=== PATIENT | female | born 1980 | race Caucasian/White ===

== ENCOUNTER 2016-07-12 19:47 | Emergency (ER) | payer OTHER ==
[2016-07-12 21:21] VITALS: BP 128/62
[2016-07-12] MEDS ORDERED: cefTRIAXone VIAL(*) 250 MG VIAL IM ONE (23:01)
[2016-07-12] MEDS ORDERED: Amoxicillin/Clavulanate TAB* 875 MG PO ONE (23:01)
[2016-07-12] MEDS ORDERED: Sulfamethox/Trimethoprim DS 800/160* TAB PO ONE (23:02)
[2016-07-12] MEDS ORDERED: cefTRIAXone VIAL(*) 1,000 MG VIAL ONE (23:11)
[2016-07-12] MEDS ORDERED: Lidocaine 2% PF * 5 ML VIAL ONE (23:13)
[2016-07-12] MEDS ORDERED: Lidocaine 1% MPF* 2 ML VIAL ONE (23:14)
--- NOTE | 2016-07-22 15:01 | UC ---
Jose Valdes SooYoung, scribed for Brionna Jorge MD on 07/12/16 at 2248 . Skin Complaint HPI - HPI Summary HPI Summary: A 36 y/o F presents to [facility] [place] with c/o infection at R thumbnail onset a few days ago. Additionally, pt has an abscess at her L interior elbow onset today, and worsening over hours. She also has swelling along her R-side of chin for past few days. Denies any other skin breaks, abscesses or areas of swelling. Right hand dominant. IVDA, smoker. Past PMHx of MRSA. Pt is UTD on tetanus. - History of Current Complaint Chief Complaint: UCSkin Time Seen by Provider: 07/12/16 22:35 Stated Complaint: SKIN COMPLAINT Hx Obtained From: Patient Hx Last Menstrual Period: 1 MONTH AGO Onset/Duration: Lasting Hours, Lasting Days, Still Present Current Severity: Moderate Pain Intensity: 5 Pain Scale Used: 0-10 Numeric Location: Face - R chin, Hand (Right), Other - L interior elbow Character: Swelling, Redness, Raised, Painful - Allergy/Home Medications Allergies/Adverse Reactions: Allergies Allergy/AdvReac Type Severity Reaction Status Date / Time Gabapentin Allergy Severe SKIN Verified 07/13/16 03:12 REACTION Home Medications: Home Medications Aspirin TAB* 650 mg PO PRN 07/12/16 [History] Ibuprofen TAB* [Advil TAB*] 600 mg PO PRN 07/12/16 [History] Review of Systems Constitutional: Negative Skin: Other - pos: swelling, pain, erythema at R-chin, L elbow, R thumbnail Eyes: Negative ENT: Negative Respiratory: Negative Cardiovascular: Negative Gastrointestinal: Negative Genitourinary: Negative Motor: Other - pain as per hpi Neurovascular: Negative Musculoskeletal: Other: - pain, redness, swelling as per hpi (chin, left distal ant arm just prox to elbow), R hand Neurological: Negative Psychological: Anxious - appropriate with condition All Other Systems Reviewed And Are Negative: Yes PMH/Surg Hx/FS Hx/Imm Hx Previously Healthy: No Respiratory History Of: Reports: Asthma Other History Of: Hepatitis C - Surgical History Surgical History: None - Social History Occupation: Unemployed Lives: Alone Alcohol Use: None Substance Use Type: Marijuana, Other Substance Use Comment - Amount & Last Used: METH Smoking Status (MU): Current Every Day Smoker Type: Cigarettes Amount Used/How Often: 1 PPD Physical Exam Triage Information Reviewed: Yes Appearance: Pain Distress - uncomfortable with examination, Thin Vital Signs: Initial Vital Signs Temp 97.1 F 07/12/16 21:16 Pulse 84 07/12/16 21:16 Resp 16 07/12/16 21:16 BP 128/62 07/12/16 21:16 Pulse Ox 100 07/12/16 21:16 Vital Signs Reviewed: Yes Eye Exam: Normal - pupils approx 2-3m, equal ENT Exam: Normal Dental Exam: Other - poor dentition R chin with + redness, swelling. Tongue NOT elevated. No trismus. Neck supple. Neck exam: Normal Respiratory Exam: Normal Cardiovascular Exam: Normal Abdominal Exam: Normal Musculoskeletal Exam: Other - L distal arm just prox to elbow with approx 5cm area of redness, swelling. C/w abscess. Distal pulses 2+, good cap refill. Able to straighten elbow, but uncomfortable Distal strength good. R index finger wiht paronychia, with dusky margins. + white purulence noted. Moves finger ok. Tender with pressure examination. Neurological Exam: Normal - nonfocal Psychological Exam: Normal - appropriate. speech clear. Skin Exam: Other - see above - Additional Comments Appearance: Well-Nourished Eye Exam: Normal ENT Exam: Normal Neck exam: Normal, no adenopathy appreciated Respiratory Exam: Normal, no dyspnea, no tachypnea, normal respiratory rate Only if she checked: Chest non-tender, Lungs clear, Normal breath sounds, No respiratory distress, No accessory muscle use Cardiovascular Exam: Normal Cardiovascular: RRR, No Murmur, Pulses Normal - sitting up. heart rate correlates w left radial pulse (if relevant), Brisk Capillary Refill Abdominal Exam: Normal Abdomen Description: Nontender, No organomegaly, Soft Bowel Sounds: Present Musculoskeletal Exam: Normal Musculoskeletal: Strength Intact Neurological Exam: Normal: nonfocal, grossly intact Psychological Exam: Normal: conversing easily and appropriately Skin Exam: R THUMB NECROSIOS OF AN-PARONYCHIA Course/Dx - Course Course Of Treatment: I spoke with Dr. Goel. Initlal plan to I/d paronychia here, administer IM abx. However, general condition deteriorated (+ pain). She will go the ED (for futher eval / tx / IV abx). I called the ED to advise. PO abx administered here at [facility]. AMA signed for EMS. Tet utd per pt (last year). Questions answered as posed. Conversing easily and appropriately at departure, airway intact. No new problems reported. Cistern Room Operator driving pt to ED. - Diagnoses Provider Diagnoses: Multiple abscesses and cellulitis (chin, left arm). R index finger paronychia with early necrosis - Physician Notification/Consults Discussed Patient Care With: 0: Spoke to benita Zheng. 2329: Spoke to YONAS Gallardo Instructed by Provider To: MD Will See In ED Procedures - Incision and Drainage Site: R thumbnail Discharge - Discharge Plan Condition: Stable Disposition: AGAINST MEDICAL ADVICE Prescriptions: Sulfamethox/Trimethoprim DS* [Bactrim DS 800/160 TAB*] 1 tab PO BID #20 tab The documentation as recorded by the Jose gutierrez SooYoung accurately reflects the service I personally performed and the decisions made by me, Brionna Jorge MD.
== END 2016-07-12 23:40 | disposition left against medical advice (07) ==
LOC: UCEAST 19:47
DX: L02.01 Cutaneous abscess of face (principal); L02.414 Cutaneous abscess of left upper limb; L03.211 Cellulitis of face; L03.114 Cellulitis of left upper limb; L03.011 Cellulitis of right finger; I96 Gangrene, not elsewhere classified; Z86.14 Personal history of Methicillin resistant Staphylococcus aureus infection; F12.90 Cannabis use, unspecified, uncomplicated; F17.210 Nicotine dependence, cigarettes, uncomplicated
CPT/HCPCS: 99212; 99213; A9270-GY; G0463; J0696

== ENCOUNTER 2016-07-13 00:39 | Emergency (ER) | payer OTHER ==
[2016-07-13 00:55] VITALS: BP 114/76
[2016-07-13] MEDS ORDERED: oxyCODONE/Acetamin 5/325 MG* TAB PO ONE ×2 (01:57→02:30)
--- NOTE | 2016-07-13 02:58 | ED ---
Skin Complaint - HPI Summary HPI Summary: 36 F presents with multiple abscess on body. She states that she does not know when they started but today the got worst. One is located on right of her chin , on right thumb, and left forearm. She does inject heroin but she states she does not use any of these locations. She has PMH of MRSA. She denies any fever. She was seen at and transferred here. She is right handed. - History of Current Complaint Chief Complaint: EDRashSkinAbscess Time Seen by Provider: 07/13/16 01:13 Stated Complaint: LEFT ARM AND CHIN ABCESS/R THUMB PAIN Hx Last Menstrual Period: 1 MONTH AGO Pain Intensity: 8 - Allergy/Home Medications Allergies/Adverse Reactions: Allergies Allergy/AdvReac Type Severity Reaction Status Date / Time Gabapentin Allergy Severe SKIN Verified 07/13/16 03:12 REACTION PMH/Surg Hx/FS Hx/Imm Hx Cardiovascular History: Denies: Hx Hypertension Respiratory History: Reports: Hx Asthma - Immunization History Date of Tetanus Vaccine: utd Date of Influenza Vaccine: unk Infectious Disease History: Yes Infectious Disease History: Reports: Hx Hepatitis - HEP C Denies: Traveled Outside the [place] in Last 30 Days - Family History Known Family History: Negative: Cardiac Disease - Social History Alcohol Use: None Substance Use Type: Reports: Heroin, Marijuana, Other Substance Use Comment - Amount & Last Used: METH Smoking Status (MU): Current Every Day Smoker Type: Cigarettes Amount Used/How Often: 1 PPD Review of Systems Negative: Fever Negative: Chest Pain Negative: Shortness Of Breath Positive: Other - abscess of right thumb, left forearm, chin All Other Systems Reviewed And Are Negative: Yes Physical Exam Triage Information Reviewed: Yes Vital Signs On Initial Exam: Initial Vitals Temp Pulse Resp BP Pulse Ox 97.9 F 80 14 114/76 97 07/13/16 00:47 07/13/16 00:47 07/13/16 00:47 07/13/16 00:47 07/13/16 00:47 Vital Signs Reviewed: Yes Appearance: Positive: Pain Distress Skin: Positive: Other - parochnyia noted of right thumb, abscess of left forearm , and abscess vs cellulitis of chin, Head/Face: Positive: Normal Head/Face Inspection Eyes: Positive: Normal, Conjunctiva Clear Respiratory/Lung Sounds: Positive: Clear to Auscultation, Breath Sounds Present Cardiovascular: Positive: Normal, RRR Musculoskeletal: Positive: Strength/ROM Intact - of right thumb, Limited @ - left forearm due to pain - Vianney Coma Scale Coma Scale Total: 15 Procedures - Incision and Drainage Site: right thumb near nail and left forearm Anesthesia: Topical - left forearm, Digital - right thumb Instrument(s): Scalpel Diagnostics - Vital Signs Vital Signs Temp Pulse Resp BP Pulse Ox 07/13/16 00:47 97.9 F 80 14 114/76 97 - Laboratory Lab Statement: Any lab studies that have been ordered have been reviewed, and results considered in the medical decision making process. Course/Dx - Course Course Of Treatment: 36 F presents with multiple potenital abscess. has PMH of MRSA. parochynia noted on right thumg, dr renee performed u/s and did not see drainable area in chin so likely cellulitis, saw drainable area of left forearm which I was not able to drain with I&D, was able to drain parochynia, will place on bactrim and keflex, first dose already given at urgent care, will have patient follow up friday at or ED for wound check as was unable to drain abscess of left forearm, encouraged to do warm compresses, warned if redness or swelling increase to return to ED immediately, patient understands and agrees with plan - Differential Diagnoses - Skin Complaint Differential Diagnoses: Abscess, Cellulitis, Contact Dermatitis - Diagnoses Provider Diagnoses: Paronychia of right thumb, Abscess of left forearm, Cellulitis of chin Discharge - Discharge Plan Condition: Stable Disposition: HOME Prescriptions: Cephalexin CAP* [Keflex CAP*] 500 mg PO BID #19 cap Sulfamethox/Trimethoprim DS* [Bactrim DS 800/160 TAB*] 1 tab PO BID #19 tab Patient Education Materials: Abscess (ED) Referrals: [facility] [place] [facility] [Outside] Additional Instructions: Take Bactrim and Keflex each twice a day for 10 days Do warm soaks of areas Take Tylenol or ibuprofen for pain every 6 hours Follow up Friday for wound check at urgent care or ED Establish care with primary care physician Return to ED if redness or swelling spreads, fever, or any new or worsening symptoms
[2016-07-13] MEDS ORDERED: Sulfamethox/Trimethoprim DS 800/160* TAB PO ONE (02:59)
[2016-07-13] MEDS ORDERED: Cephalexin CAP* 500 MG PO ONE (03:00)
== END 2016-07-13 03:20 | disposition home or self-care (01) ==
LOC: ED 00:39
DX: L03.011 Cellulitis of right finger (principal); L02.414 Cutaneous abscess of left upper limb; L03.211 Cellulitis of face; F17.210 Nicotine dependence, cigarettes, uncomplicated; F11.10 Opioid abuse, uncomplicated; F15.10 Other stimulant abuse, uncomplicated; B19.20 Unspecified viral hepatitis C without hepatic coma; F12.10 Cannabis abuse, uncomplicated
CPT/HCPCS: 10060; 87070; 87077; 87186; 87205; 99282; A9270-GY

== ENCOUNTER 2016-07-16 13:48 | Emergency (ER) | payer OTHER ==
[2016-07-16 14:05] VITALS: BP 99/60
--- NOTE | 2016-07-16 14:52 | UC ---
HPI Wound/Suture Re-check - HPI Summary HPI Summary: PT HAD RIGHT THUMB ABSCESS I&D AND LEFT ANTECUBITAL FOSSA ABSCESS ATTEMPTED I&D ON 07/13/16 IN THE ER. 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 LEFT ARM REDNESS IS SMALLER BUT PERSISTENT AND SWELLING IS BETTER. NO PUS BUT STILL HAS SOME SEROSANGUINOUS OOZING. PT IS NOT RELIABLY SOAKING THE WOUNDS. IS AN IV DRUG USER AND HAS NO INTEREST IN CESSATION AT THIS TIME. NO FEVER. - History Of Current Complaint Chief Complaint: UCWounds Stated Complaint: RECHECK WOUND Time Seen by Provider: 07/16/16 14:19 Hx Obtained From: Patient Onset/Duration: Gradual Onset, Still Present Severity: Moderate Pain Intensity: 3 Pain Scale Used: 0-10 Numeric - Allergies/Home Medications Allergies/Adverse Reactions: Allergies Allergy/AdvReac Type Severity Reaction Status Date / Time Gabapentin Allergy Severe SKIN Verified 07/13/16 03:12 REACTION PMH/Surg Hx/FS Hx/Imm Hx Cardiovascular History Of: Denies: Hypertension Respiratory History Of: Reports: Asthma - Surgical History Surgical History: None - Family History Known Family History: Negative: Cardiac Disease - Social History Alcohol Use: None Substance Use Type: Heroin, Marijuana, Other Substance Use Comment - Amount & Last Used: METH Smoking Status (MU): Current Every Day Smoker Type: Cigarettes Amount Used/How Often: 1 PPD Review of Systems Constitutional: Negative Skin: Other - REDNESS, INDURATION AROUND I&D SITE LEFT ANTECUBITAL FOSSA Respiratory: Negative Cardiovascular: Negative Gastrointestinal: Negative All Other Systems Reviewed And Are Negative: Yes Physical Exam Triage Information Reviewed: Yes Appearance: Well-Appearing, No Pain Distress, Well-Nourished Vital Signs: Initial Vital Signs Temp 98.2 F 07/16/16 14:01 Pulse 86 07/16/16 14:01 Resp 16 07/16/16 14:01 BP 99/60 07/16/16 14:01 Pulse Ox 100 07/16/16 14:01 Vital Signs Reviewed: Yes Eyes: Positive: Conjunctiva Clear ENT: Positive: Hearing grossly normal Neck: Positive: Supple Respiratory: Positive: No respiratory distress, No accessory muscle use Cardiovascular: Positive: Pulses Normal Abdomen Description: Positive: Soft Musculoskeletal: Positive: ROM Intact Neurological: Positive: Alert Psychological: Positive: Age Appropriate Behavior Skin: Positive: Other - 3CM X 4.5CM AREA OF ERYTHEMA AND INDURATION AROUND I&D SITE LEFT ANTECUBITAL FOSSA. 2CM LINEAR INCISION WITH SEROSANGUIONOUS OOZE. TTP. RIGHT THUMB WITHOUT REDNESS OR DRAINAGE. TENDER. Course/Dx - Course Course Of Treatment: INCREASE DOSE OF BACTRIM. WARM SOAKS MUST BE DONE AT LEAST 4 TIMES DAILY. HIBICLENS WASH. BACTROBAN INTRANASALLY. FOLLOW-UP IN 2 DAYS IF NOT IMPROVING. ADVISED SUBSTANCE ABUSE CESSATION BUT PT IS NOT INTERESTED. OFFERED TO GIVE CONTACTS FOR RESOURCES FOR SUBSTANCE ABUSE - PT STATES SHE ALREADY HAS. - Differential Dx - Laceration/Wound Provider Diagnoses: ABSCESS/CELLULITIS LEFT ARM Discharge - Discharge Plan Condition: Stable Disposition: HOME Prescriptions: Mupirocin Calcium [Bactroban Nasal] 2 % NA BID #1 tube Sulfamethox/Trimethoprim DS* [Bactrim DS 800/160 TAB*] 1 tab PO BID #14 tab Patient Education Materials: Abscess (ED) Additional Instructions: CALL THE NUMBER BELOW FOR ASSISTANCE IN ESTABLISHING WITH A PCP An additional resource available to assist in finding the appropriate physician for your health care needs is the [facility] ([facility]). You may contact them by calling [phone].USE WILL INCREASE YOUR BACTRIM DOSE TO 2 TABS TWICE DAILY FOR THE REMAINING 7 DAY COURSE. HIBICLENS WASH DAILY FOR 3 DAYS THEN CONSIDER WEEKLY OR EVERY OTHER WEEK USE WARM/HOT COMPRESSES/SOAKS AT LEAST 4 TIMES DAILY BACTROBAN NASALLY 2 TIMES DAILY X 5 DAYS CHANGE BANDAGE DAILY AND NEEDED IF BECOMES SOILED OR WET GO TO THE ER OR RETURN HERE FOR WOUND RECHECK IN 2 DAYS IF NOT IMPROVING. Apply HIBICLENS directly on your skin or on a wet washcloth and wash gently. Avoid mucous membranes (eyes, ears, mough, genitals). If showering: Move away from the shower stream when applying HIBICLENS to avoid rinsing off too soon. Rinse thoroughly with warm water. Do not use regular soap after applying and rinsing HIBICLENS. Dry your skin with a towel. Put on a freshly laundered gown or clothes after bathing.
== END 2016-07-16 15:34 | disposition home or self-care (01) ==
LOC: UCEAST 13:48
DX: L02.414 Cutaneous abscess of left upper limb (principal); F11.90 Opioid use, unspecified, uncomplicated; F12.90 Cannabis use, unspecified, uncomplicated; F17.210 Nicotine dependence, cigarettes, uncomplicated
CPT/HCPCS: 99212; G0463

== ENCOUNTER 2017-02-09 12:37 | Emergency (ER) | payer SELFPAY ==
[2017-02-09 12:58] VITALS: BP 100/54
--- NOTE | 2017-02-09 13:07 | UC ---
Skin Complaint HPI - HPI Summary HPI Summary: 37 y/o female PMHX of Hep C, IVDA presents to the urgent care c/o a painful red rash in her chin for the past 3 days. Pt states she has HX of MRSA in her chin before. She took 1 dose of Bactrim from a friend yesterday and has been soaking her skin with warm compresses. Pain is 7/10 at touch, and 4/10 at rest, Pt denies fever, SOB, chest pain, abdominal pain, N/V/D, urinary symptoms. - History of Current Complaint Chief Complaint: UCSkin Time Seen by Provider: 02/09/17 13:04 Stated Complaint: MRSA INFECTION IN CHIN Hx Obtained From: Patient Hx Last Menstrual Period: 06-06-16 ?: No Onset/Duration: Gradual Onset, Lasting Days - 3 days, Still Present Skin Exposure Onset/Duration: Days Ago - 3 days Timing: Constant Onset Severity: Mild Current Severity: Moderate Pain Intensity: 7 Pain Scale Used: 0-10 Numeric Location: Discrete - at the chin Character: Swelling, Pain, Redness, Raised Aggravating: Touch Alleviating: Nothing Associated Signs & Symptoms: Positive: Tenderness. Negative: Nausea, Vomiting, Numbness, Fever, Chills, Throat Tightening Related History: Other: - HX of MRSA Similar Episode/Dx as: abscess HX of MRSA - Allergy/Home Medications Allergies/Adverse Reactions: Allergies Allergy/AdvReac Type Severity Reaction Status Date / Time Gabapentin Allergy Severe SKIN Verified 07/13/16 03:12 REACTION Home Medications: Home Medications Fentanyl Patch IV 02/09/17 [History] Review of Systems Constitutional: Negative Skin: Rash - at the chin swollen and red Eyes: Negative ENT: Negative Respiratory: Negative Cardiovascular: Negative Gastrointestinal: Negative Genitourinary: Negative Motor: Negative Neurovascular: Negative Musculoskeletal: Negative Neurological: Negative Psychological: Negative Is Patient Immunocompromised?: No All Other Systems Reviewed And Are Negative: Yes PMH/Surg Hx/FS Hx/Imm Hx Previously Healthy: Yes Other Endocrine History: Hep C Respiratory History: Asthma - Surgical History Surgical History: None - Family History Known Family History: Positive: Cardiac Disease, Hypertension, Diabetes - Social History Occupation: Unemployed Lives: With Family Alcohol Use: None Substance Use Type: Marijuana, Other Substance Use Comment - Amount & Last Used: opiates, IV fentanyl from a patch Smoking Status (MU): Current Every Day Smoker Type: Cigarettes Amount Used/How Often: 1 PPD Have You Smoked in the Last Year: Yes Household Exposure Type: Cigarettes Physical Exam Triage Information Reviewed: Yes Appearance: Well-Appearing, No Pain Distress, Well-Nourished Vital Signs: Initial Vital Signs Temp 98.4 F 02/09/17 12:51 Pulse 84 02/09/17 12:51 Resp 16 02/09/17 12:51 BP 100/54 02/09/17 12:51 Pulse Ox 100 02/09/17 12:51 Vital Signs Reviewed: Yes Eye Exam: Normal Eyes: Positive: Conjunctiva Clear - PERRLA, EOMI ENT Exam: Normal ENT: Positive: Normal ENT inspection, Hearing grossly normal, Pharynx normal, TMs normal Dental: Positive: Gross Decay/Caries @ - Poor dental hygiene Neck exam: Normal Neck: Positive: Supple, Enlarged Nodes @ - B/L anterior cervical lymphadenoapathy tedner to palpation Respiratory Exam: Normal Respiratory: Positive: Chest non-tender, Lungs clear, Normal breath sounds Cardiovascular Exam: Normal Cardiovascular: Positive: RRR, No Murmur, Pulses Normal, Brisk Capillary Refill Abdominal Exam: Normal Abdomen Description: Positive: Nontender, No Organomegaly, Soft. Negative: CVA Tenderness (R), CVA Tenderness (L) Bowel Sounds: Positive: Present Musculoskeletal Exam: Normal Musculoskeletal: Positive: Strength Intact, ROM Intact, No Edema Neurological Exam: Normal Psychological Exam: Normal Skin: Positive: rashes - Chin with erythematous nonpurulent indurated abscess, tender to palaption, mild yellowish crusting over. swollen and warm to touch, About [id number] in size. Course/Dx - Course Course Of Treatment: 37 y/o female PMHX of Hep C, IVDA presents to the urgent care c/o a painful red rash in her chin for the past 3 days. Pt states she has HX of MRSA in her chin before. She took 1 dose of Bactrim from a friend yesterday and has been soaking her skin with warm compresses. Pain is 7/10 at touch, and 4/10 at rest, Pt denies fever, SOB, chest pain, abdominal pain, N/V/D , urinary symptoms.HX obtained. Pt with an indurated nonpurulent abscess in her chin. Pt with HX of MRSA. Wound culture taken from superficial skin and sent to lab r/o MRSA. Pt given Rocefin IM inj by Nurse. DR Ramos counsulted and agreed on Pt's plan and care. Pt tolerated well IM inj and observed for 20min. Pt RX Amoxicillin PO and Bactrim PO and Bactroban oint. since PT with previous episode of MRSA in the same area. Pt Rx Ibuprofen PO after meals for pain. Pt advised to apply warm compresses to induce drainage and return to the clinic or PCP in 2 days for further evaluation and possible drainage. Also advised If redness and swelling doubles in size and fever develops despite antibiotics please go to the ER immediately. Pt understood and agreed with D/C instructions.Left the clinic ambulating and A&OX3 - Differential Diagnoses - Skin Complaint Differential Diagnoses: Abscess, Allergic Reaction, Cellulitis, Impetigo, MRSA, Tick Born Illness, Urticaria - Diagnoses Provider Diagnoses: 1- Abscess of chin w/ Hx of MRSA - Physician Notification/Consults Discussed Patient Care With: Angeline Ramos - DR Ramos agreed with PT plan and care Discharge - Discharge Plan Condition: Stable Disposition: HOME Prescriptions: Amoxicillin PO (*) [Amoxicillin 500 MG CAP*] 500 mg PO TID #30 cap Ibuprofen TAB* [Motrin TAB* 800 MG] 800 mg PO Q6H #30 tab Mupirocin 2% OINT* [Bactroban 2 % Oint*] 1 applic TOPICAL TID #1 tube Sulfamethox/Trimethoprim DS* [Bactrim DS 800/160 TAB*] 1 tab PO BID #20 tab Patient Education Materials: MRSA (Methicillin-Resistant Staphylococcus Aureus ) (ED), Abscess (ED) Referrals: [facility] [Outside] No Primary Care Phys,NOPCP [Primary Care Provider] - Additional Instructions: 1-Please take full course of Antibiotics.Apply warm compresses to induce drainage 2- If redness and swelling doubles in size and fever develops despite antibiotics please go to the ER immediately. 3-Cultures were sent to the lab if any abnormality you will receive a call from us for further management 4-Please F/u with your PCP or return to the urgent care in 2 days for wound check and further evaluation and treatment.
[2017-02-09] MEDS ORDERED: cefTRIAXone VIAL(*) 1,000 MG VIAL IM ONE (13:42)
[2017-02-09] MEDS ORDERED: Lidocaine 1% MPF* 2 ML VIAL INJ ONE ×2 (13:50→13:52)
--- NOTE | 2017-02-10 13:00 | UC ---
Progress - Progress Note Progress Note: notify pt see may stop amoxicillin
== END 2017-02-09 14:20 | disposition home or self-care (01) ==
LOC: UCEAST 12:37
DX: L02.01 Cutaneous abscess of face (principal); B95.62 Methicillin resistant Staphylococcus aureus infection as the cause of diseases classified elsewhere; J45.909 Unspecified asthma, uncomplicated; F11.90 Opioid use, unspecified, uncomplicated; F12.90 Cannabis use, unspecified, uncomplicated; F17.210 Nicotine dependence, cigarettes, uncomplicated
CPT/HCPCS: 87070; 87077; 87186; 87205; 87640; 87641; 96372; 99212; G0463; J0696

== ENCOUNTER 2017-04-16 04:11 | Inpatient (IN) | payer OTHER ==
[2017-04-16] MEDS ORDERED: NS 0.9% 1000 ML* 1,000 ML IV ONE (04:31)
[2017-04-16 04:55] LABS: Urine Bacteria Absent (Absent); Urine Bilirubin Negative (Negative); Urine Glucose Negative (Negative); Urine Nitrite Negative (Negative)
[2017-04-16 07:27] LABS: Hematocrit 36 % (35-47); Hemoglobin 12.2 g/dl (12.0-16.0); Mean Corpuscular HGB Conc 34 g/dl (31-36); Mean Corpuscular Hemoglobin 28 pg (27-31); Mean Corpuscular Volume 83 fL (80-97); Mean Platelet Volume 9 um3 (7.4-10.4); Red Blood Count 4.35 10^6/ul (4.0-5.4); Red Cell Distribution Width 14 % (10.5-15); White Blood Count 12.7 10^3/ul (3.5-10.8)
[2017-04-16] MEDS ORDERED: Ibuprofen TAB* 600 MG PO ONE (07:38)
[2017-04-16 07:42] LABS: ALT 21 U/L (7-52); AST 27 U/L (13-39); Albumin 3.8 g/dL (3.2-5.2); Alkaline Phosphatase 67 U/L (34-104); Anion Gap 5 mmol/L (2-11); BUN/Creatinine Ratio 31.8 (8-20); Blood Urea Nitrogen 21 mg/dL (6-24); C Reactive Protein 16.67 mg/L (< 5.00); CO2 Carbon Dioxide 23 mmol/L (22-32); Chloride 105 mmol/L (101-111); Creatine Kinase 126 U/L (10-223); EGFR African American 128.9 (>60); EGFR Non-African American 100.2 (>60); Glucose 105 mg/dL (70-100); Lipase < 10 U/L (11.0-82.0); Magnesium 1.9 mg/dL (1.9-2.7); Potassium 4.3 mmol/L (3.5-5.0); Sodium 133 mmol/L (133-145); Total Protein 6.8 g/dL (6.4-8.9)
[2017-04-16 07:51] LABS: Troponin I 0.06 ng/mL (<0.04)
--- NOTE | 2017-04-16 07:59 | RAD ---
INDICATION: Shortness of breath and chest pain COMPARISON: None. TECHNIQUE: Single AP portable view of the chest was obtained. FINDINGS: Image quality is compromised due to the relative inferiority of a portable chest x-ray. The heart and mediastinum exhibit normal size and contour. There is density overlying the bilateral lungs, more severely affecting the lower lungs than superiorly. There is no definite focal or lobar consolidation. The costophrenic angles are well-defined. Visualized bones are normal for the patient's age. IMPRESSION: Density overlying the bilateral lower lungs could be seen in the setting of pneumonitis, infiltration or possibly early ARDS depending on the patient's clinical presentation. This appearance could simply be the consequence of incomplete inspiration of the time of image acquisition. Pulmonary edema is considered less likely with a normal-appearing heart and mediastinum and no costophrenic angle blunting.
[2017-04-16] MEDS ORDERED: cefTRIAXone(*) 1 GM in NS 0.9% 50 ML* 50 ML IVPB ONE (08:05)
[2017-04-16] MEDS ORDERED: Vancomycin(*) 1,000 MG in NS 0.9% 250 ML* 250 ML IVPB ONE (08:05)
[2017-04-16 09:42] LABS: Acetaminophen < 15 mcg/mL; Salicylate < 2.50 mg/dL (<30)
--- NOTE | 2017-04-16 09:43 | ECHO ---
Patient: JENNIFER HART [facility] Rec#: [id number] : 1980 Date: 04/16/2017 Age: 37y Height: 162.56 cm / 64.0 in Weight: 58.97 kg / 130.0 lbs Sex: F BSA: 1.63 Room#: ED 10 Admit Date#: 04/16/2017 Type: Outpatient Referring: Jono Barrera MD Reading: Stacey Cassidy MD Bass Singer: Jessica MalhotraRDCS,RDMS Transthoracic Echocardiogram Indication: SOB BP: 106/63 HR: 88 Rhythm: NSR Findings History: IVDA, murmur, asthma Technical Comments: The study quality is good. Left Ventricle: The left ventricular chamber size is normal. There is no left ventricular hypertrophy. Global left ventricular wall motion and contractility are within normal limits. Left ventricular systolic function is at the lower limits of normal. The estimated ejection fraction is 50-55%. Normal left ventricular diastolic filling is observed. Left Atrium: The left atrial chamber size is normal. Right Ventricle: The right ventricular chamber size and systolic function are within normal limits. Right Atrium: The right atrial cavity size is normal. Aortic Valve: The aortic valve is trileaflet. There is no evidence of aortic valve thickening. Systolic excursion of the aortic valve is normal. There is a trace of aortic regurgitation. There is no evidence of aortic stenosis. Mitral Valve: The mitral valve leaflets are mildly thickened. There is no evidence of mitral regurgitation. There is no evidence of mitral stenosis. Tricuspid Valve: The tricuspid valve leaflets are mildly thickened. There is moderate tricuspid regurgitation. The tricuspid regurgitant jet is centrally directed. No pulmonary hypertension is noted.possibly underestimated. Pulmonic Valve: There is no evidence of pulmonic valve thickening. There is no evidence of pulmonic regurgitation. Pericardium: There is no significant pericardial effusion. Aorta: The aortic root appears normal. There is no dilatation of the aortic arch. Pulmonary Artery: The main pulmonary artery is not well visualized. Venous: The inferior vena cava appears normal in size. There is less than 50% respiratory change in the inferior vena cava dimension. Conclusions The left ventricular chamber size is normal. Global left ventricular wall motion and contractility are within lower normal limits. Normal left ventricular diastolic filling is observed. The estimated ejection fraction is 50-55%. The right ventricular chamber size and systolic function are within normal limits. There is a trace of aortic regurgitation. There is moderate tricuspid regurgitation. PA pressure estimate may be underestimated. No prior echo to compare. Measurements Name Value Normal Range RVIDd (AP) 2D 2.8 cm (0.9 - 2.6) RAd ISD 4CH 4.5 cm (3.4 - 4.9) RA (A4C)W 4.5 cm (2.9 - 4.6) IVSd (2D) 0.9 cm (0.6 - 1) LVPWd (2D) 0.9 cm (0.6 - 1) LVIDd (2D) 4.2 cm (3.6 - 5.4) LVIDs (2D) 3.2 cm - LV FS (2D) 23 % (25 - 45) Aortic Annulus 2 cm (1.4 - 2.6) Ao root diameter (2D) 2.8 cm (2.1 - 3.5) Ascending Ao 2.1 cm (2.1 - 3.4) Aortic arch 2.2 cm (1.8 - 3.4) LA dimension (AP) 2D 3.5 cm (2.3 - 3.8) LAd ISD 4CH 5.2 cm (2.9 - 5.3) LA ISD 4CH W 3.6 cm (2.5 - 4.5) Name Value Normal Range LA ESV SP 4CH (A/L) 38.96 ml - LA ESV SP 2CH (A/L) 38.71 ml - LA ESV BP (A/L) 41.8 ml - LA ESV BP (A/L) index 26 ml/m2 - LA ESV SP 4CH (MOD) 36.34 ml - LA ESV SP 2CH (MOD) 37.23 ml - Name Value Normal Range MV E-wave Vmax 1 m/sec - MV deceleration time 113 msec - MV A-wave Vmax 0.4 m/sec - MV E:A ratio 2.5 ratio - P. vein S-wave Vmax 0.5 m/sec - P. vein D-wave Vmax 0.4 m/sec - P. vein S:D Vmax ratio 1.3 ratio - P. vein A-wave duration 55 msec - LV septal e' Vmax 0.14 m/sec - LV lateral e' Vmax 0.14 m/sec - LV E:e' septal ratio 7.1 ratio - LV E:e' lateral ratio 7.1 ratio - Name Value Normal Range AV Vmax 1.6 m/sec - AV VTI 30 cm - AV peak gradient 10 mmHg - AV mean gradient 6.4 mmHg - LVOT Vmax 1.3 m/sec - LVOT VTI 21 cm - LVOT peak gradient 7 mmHg - LVOT mean gradient 3.8 mmHg - MICHAEL Vmax 1 m/sec - Name Value Normal Range TR Vmax 2.6 m/sec - TR peak gradient 27 mmHg - RAP 3 mmHg - RVSP 30 mmHg - IVC diameter 2 cm - Name Value Normal Range PV Vmax 0.7 m/sec - PV peak gradient 2 mmHg -
[2017-04-16 09:57] LABS: TSH (Thyroid Stimulating Horm) 0.93 mcIU/mL (0.34-5.60)
[2017-04-16] MEDS: Buprenorphine/Naloxone 8-2 MG SL TAB* 1 TAB PO SCH (11:21)
[2017-04-16] MEDS ORDERED: Azithromycin IV(*) 500 MG in NS 0.9% 250 ML* 250 ML IVPB ONE (12:00)
--- NOTE | 2017-04-16 12:18 | ED ---
IErica Gabriel, scribed for Jono Barrera MD on 04/16/17 at 0704 . Progress - Progress Note Progress Note: This patient was signed out from Dr. Burleson, pending disposition, awaiting labs. The patients is being admitted for admission to [facility]. Reevaluation at 0650. Discussed necessity of drawing blood. Patient reports that the dyspnea which began yesterday afternoon has improved from onset. 11:03 : I consulted with Dr. Sharma, hospitalist. Who agreed to admit the patient if the patient was willing to stay. Ms. Hernandez presented C/o the acute onset of SOB yesterday afternoon. It is a little better now. She also C/o right flank pain which she says she has had for a long time. She has not used heroin in months as she is on suboxone now. She has a mildly elevated WBC. Her troponin is indeterminant. CRP is slightly elevated as is her BNP and her d-dimer is negative. CXR shows a pneumonitis. An Echo was obtained with the concern for endocarditis and valvular pathology and was negative. She is being admitted to the hospitalist service for further W/u with consideration of chest CTA. - Consult/PCP Time Called: 08:22 Consult/PCP: Dr. Stacey Cassidy Consult Reason/Comments: I consulted with Dr. Cassidy who has agreed to come read the patients echo. Course/Dx - Diagnoses Provider Diagnoses: Dyspnea The documentation as recorded by the Erica gutierrez Gabriel accurately reflects the service I personally performed and the decisions made by me, Jono Barrera MD.
[2017-04-16] MEDS ORDERED: Acetaminophen TAB* 325 MG PO PRN (13:22)
[2017-04-16] MEDS ORDERED: Ondansetron INJ* 2 MG/ML VIAL IV PRN (13:22)
[2017-04-16] MEDS ORDERED: Nicotine Inhaler* 10 MG AMP INH PRN (13:35)
[2017-04-16] MEDS ORDERED: Mouth Piece, Nicotine* 1 EACH CARTRIDGE INH PRN (13:35)
[2017-04-16] MEDS: Nicotine PATCH 21 MG/24 HR* PATCH TRANSDERM SCH (14:12)
[2017-04-16] MEDS ORDERED: Levofloxacin TAB* 750 MG PO SCH (15:00)
[2017-04-16] MEDS: Nicotine Patch Removal NOTE FOLLOW UP SCH (19:58)
--- NOTE | 2017-04-16 20:19 | HP ---
HISTORY AND PHYSICAL: DATE OF ADMISSION: 04/16/17 PRIMARY CARE PHYSICIAN: [facility]. ADMITTING PHYSICIAN: Dr. Tarsha Sharma* (report dictated by Brianna Mooney, SHEREE). CHIEF COMPLAINT: Neck and throat pain and shortness of breath. HISTORY OF PRESENT ILLNESS: This patient is a 37-year-old female with past medical history of IV drug use and MRSA skin infection in the past, who presented to the emergency room today with a 24-hour history of neck and throat pain as well as shortness of breath. The patient is currently still an IV drug user. She states she used amphetamines yesterday. The patient states that the symptoms developed yesterday. In addition, the patient also had some nausea. The patient denied any fever or cough. She came today to the emergency room for further evaluation. In the emergency room, the patient was found to have slightly elevated white count of 12.7, indeterminate troponin of 0.06. She had a CRP that was only 16.67. She went on to have a transthoracic echocardiogram while down in the emergency room that showed normal ejection fraction and wall motion. Her D-dimer was negative. Chest x-ray showed bilateral infiltrates. The patient will be admitted to observation for bilateral pneumonia. PAST MEDICAL HISTORY: IV drug abuse, tobacco abuse. HOME MEDICATIONS: Suboxone 3 tabs sublingual daily. ALLERGIES: NEURONTIN and ENVIRONMENTAL allergies. FAMILY HISTORY: The patient states both of her parents are alive and well without any history of coronary artery disease, diabetes, or cancer, staying with her siblings. SOCIAL HISTORY: The patient currently smokes, drinks alcohol occasionally, and is currently using IV drugs, yet denies the use of IV opioids. She is not working. Her surrogate decision maker would be her mother, Magaly Pride, in the event the patient cannot make decisions for herself. 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 REVIEW OF SYSTEMS: I performed a 14-point review of systems; all the pertinent positives and negatives are mentioned in the history of present illness. The remaining review of systems is negative. PHYSICAL EXAMINATION GENERAL APPEARANCE: The patient is alert, pleasant, and appeared to be in no apparent distress. VITAL SIGNS: Temperature 99, heart rate 79, respiratory rate 13, blood pressure 95/57, oxygen saturation 95%. HEENT: Normocephalic/atraumatic. Pupils are equal and reactive to light. Extraocular movements were intact. NECK: Supple. There is no lymphadenopathy noted. RESPIRATORY: There is no accessory muscle use. Lungs are clear to auscultation. CARDIAC: S1, S2 were crisp. There were no murmurs, rubs, or gallops heard. ABDOMEN: Soft, nontender, and nondistended. There are bowel sounds x4. EXTREMITIES: There is no lower extremity edema. DP and PT pulses were 2+ and symmetric. MUSCULOSKELETAL: No clubbing or cyanosis noted. The patient exhibited equal strength in all extremities. NEURO: Cranial nerves II through XII are intact. The patient moves all extremities. Lower extremities are intact to light touch. PSYCH: The patient is alert and oriented x3. SKIN: There were sierra seen bilateral on arms also. She has healed areas of prior MRSA skin infection on her face. DIAGNOSTIC STUDIES/LAB DATA: Sodium 133, potassium 4.3, chloride 23, BUN 21, creatinine 0.6, glucose 105, lactic acid 0.9, calcium 9, magnesium 1.9. Liver function tests within normal limits. Alk phos 67. CK 126, CK-MB 3.3. Troponin 0.06. CRP 16.67. BNP 174. Lipase less than 10. TSH 0.93. Beta hCG less than 0.6. INR 0.99, D-dimer less than 200. Urine is 1+ protein, trace ketones, present hyaline casts and epithelial cells. Tox screen negative. Chest x-ray from today showed density overlying the bilateral lower lungs, could be seen in the setting of pneumonitis, infiltration depending on the patient's clinical presentation. This appearance could simply be the complex of incomplete inspiration at the time of the image acquisition. Pulmonary edema is considered less likely with a normal-appearing heart and mediastinum and no costophrenic angle blunting. EKG from today showed sinus tachycardia, rate of 100. IMPRESSION: This is a 37-year-old female with past medical history of IV drug abuse, who presented to the emergency room with a complaint of sore throat, neck pain, and shortness of breath, found to have possible bilateral infiltrates on chest x-ray. The patient will be admitted for bilateral pneumonia. ASSESSMENT AND PLAN: 1. Bilateral pneumonia. The patient will be placed on ceftriaxone and azithromycin. Blood cultures are pending. We will also send urine for Streptococcus pneumoniae and legionella. There is possibility this chest x-ray was from incomplete inspiration, yet given the patient's white count and symptoms, she will be treated empirically for community-acquired pneumonia. D- dimer was negative, so this seems less likely from septic emboli or pulmonary embolism. The patient will be kept until we can confirm that her blood cultures are negative given her history of IV drug abuse. 2. Indeterminate troponin. The patient's troponin will be trended. The patient had a normal echocardiogram. Likely, this is from demand ischemia. The patient may need a stress test as an outpatient. 3. History of intravenous drug abuse. Suboxone will be continued. We will continue while she is here admitted. 4. DVT prophylaxis. She has no risk factors. She will ambulate. 5. Fluids, electrolytes, and nutrition. The patient will have a regular diet. 6. Code status. Full. TIME SPENT: The time for this admission was 50 minutes and 25 minutes was spent with the patient discussing medications, past medical history, and events leading up to her arrival in the emergency room. BRIANNA MOONEY NP [id number]/[facility] #: [id number] PRANAV
[2017-04-17] MEDS: ceFUROXime TAB(*) 250 MG PO SCH ×2 (07:26→20:16)
[2017-04-17] MEDS: Ibuprofen TAB* 600 MG PO PRN ×2 (07:26→17:51)
[2017-04-17] MEDS: Nicotine PATCH 21 MG/24 HR* PATCH TRANSDERM SCH (07:26)
[2017-04-17] MEDS: Buprenorphine/Naloxone 8-2 MG SL TAB* 1 TAB PO SCH (07:30)
[2017-04-17] MEDS ORDERED: cefTRIAXone VIAL(*) 1,000 MG in NS 0.9% 50 ML* 50 ML IVPB SCH (09:00)
[2017-04-17 09:06] LABS: Hematocrit 33 % (35-47); Mean Corpuscular HGB Conc 34 g/dl (31-36); Mean Corpuscular Hemoglobin 29 pg (27-31); Mean Corpuscular Volume 85 fL (80-97); Mean Platelet Volume 9 um3 (7.4-10.4); Red Blood Count 3.85 10^6/ul (4.0-5.4); Red Cell Distribution Width 14 % (10.5-15); White Blood Count 5.1 10^3/ul (3.5-10.8)
[2017-04-17 09:16] LABS: BUN/Creatinine Ratio 19.6 (8-20); Calcium 8.6 mg/dL (8.6-10.3); EGFR African American 173.6 (>60); Potassium 3.9 mmol/L (3.5-5.0)
[2017-04-17 10:43] LABS: Magnesium 1.9 mg/dL (1.9-2.7)
[2017-04-17] MEDS: Azithromycin TAB* 250 MG PO SCH (11:41)
--- NOTE | 2017-04-17 13:41 | PN ---
Subjective Date of Service: 04/17/17 Interval History: Patient seen and examined at bedside. Denies fever, chills, chest discomfort, N/ V/D. Pt reports that "throat" discomfort has improved, but shortness of breath continues to be persistent and not improved. Reports lower right sided back pain , denies recent trauma but reports an accident years ago. Tele: Sinus rhythm, rate 70-80's. Pt noted to have a 5 beat run of vtach. Family History: Unchanged from Admission Social History: Unchanged from Admission Past Medical History: Findings - Hep C Objective Active Medications: Acetaminophen (Tylenol Tab*) 650 mg PO Q4H PRN Reason: PAIN Azithromycin (Zithromax Tab*) 500 mg PO Q24H [facility] Buprenorphine/Naloxone (Suboxone 8-2 Mg Sl Tab*) 3 tab.sl PO DAILY [facility] Cefuroxime Axetil (Ceftin Tab(*)) 500 mg PO BID [facility] Device (Nicotine Mouth Piece*) 1 each INH .USE WITH NICOTROL PRN Reason: CRAVING Ibuprofen (Motrin Tab*) 600 mg PO Q8H PRN Reason: PAIN Nicotine (Nicotine Inhaler*) 10 mg INH Q2H PRN Reason: CRAVING Nicotine (Nicotine Patch 21 Mg/24 Hr*) 1 patch TRANSDERM DAILY [facility] Ondansetron HCl (Zofran Inj*) 4 mg IV Q6H PRN Reason: NAUSEA Pharmacy Profile Note (Nicotine Patch Removal Note*) 1 note FOLLOW UP 2100 [facility] Vital Signs 04/16/17 04/16/17 04/16/17 13:45 15:41 19:53 Temperature 98.3 F 98.3 F 98.5 F Pulse Rate 70 80 83 Respiratory 16 20 18 Rate Blood Pressure 89/48 84/54 95/48 (mmHg) O2 Sat by Pulse 97 98 98 Oximetry 04/17/17 04/17/17 04/17/17 00:04 04:06 07:15 Temperature 98.0 F 98.2 F 98.1 F Pulse Rate 72 78 70 Respiratory 16 16 16 Rate Blood Pressure 90/50 94/58 98/47 (mmHg) O2 Sat by Pulse 97 99 100 Oximetry 04/17/17 04/17/17 04/17/17 07:30 09:55 11:04 Temperature 97.6 F Pulse Rate 80 Respiratory 18 16 16 Rate Blood Pressure 93/42 (mmHg) O2 Sat by Pulse 96 Oximetry Oxygen Devices in Use Now: None Appearance: NAD, sitting up in bed Ears/Nose/Mouth/Throat: Mucous Membranes Moist Respiratory: Symmetrical Chest Expansion and Respiratory Effort, Clear to Auscultation Cardiovascular: NL Sounds; No Murmurs; No JVD, RRR Abdominal: NL Sounds; No Tenderness; No Distention Extremities: No Edema, - - Back non-tender Skin: No Rash or Ulcers Neurological: Alert and Oriented x 3, NL Muscle Strength and Tone Nutrition: Taking PO's Result Diagrams: 04/17/17 08:50 04/17/17 08:50 Microbiology and Other Data: Microbiology 04/16/17 20:02 Gram Stain - Final Sputum Expectorated 04/16/17 20:40 Legionella Urinary Antigen - Final Urine Negative Legionella Streptococcus pneumoniae Ag Screen - Final 04/16/17 14:15 Influenza Types A,B Antigen (ZOE) - Final Nasal Specimen received for Influenza A/B Molecular testing Assess/Plan/Problems-Billing Assessment: Ms. Hernandez is a 37 yo female with PMH significant for IV drug use and tobacco abuse who presented to the emergency room with complaints of sore throat, neck pain and shortness of breath and was found to have a possible bilateral infiltrates on chest xray. - Patient Problems (1) Pneumonia Code(s): J18.9 - PNEUMONIA, UNSPECIFIED ORGANISM SNOMED Code(s): 781592773 Comment: - Afebrile and leukocytosis resolved - Legionella and strep pneumo urine antigens negative - BC negative, day 1 - Continue ceftriaxone and azithromycin (2) Elevated troponin Code(s): R74.8 - ABNORMAL LEVELS OF OTHER SERUM ENZYMES SNOMED Code(s): 363541144 Comment: - Pt was refusing lab draws yesterday - Initial troponin 0.06, this AM 0.39 - Will trend troponin until peak - EKG this AM - shows new TWI in V2 and V3 - Echo - no significant findings (3) History of intravenous drug abuse Code(s): Z87.898 - PERSONAL HISTORY OF OTHER SPECIFIED CONDITIONS SNOMED Code( s): 79811945739960197 Comment: - Reports using amphetamines day prior to admission - Continue suboxone (4) DVT prophylaxis Code(s): LNU1330 - SNOMED Code(s): 490904290 Comment: - ambulation (5) Full code status Code(s): Z78.9 - OTHER SPECIFIED HEALTH STATUS SNOMED Code(s): 623128137 Status and Disposition: OBV to Inpatient. Discharge to home when medically stable.
[2017-04-17] MEDS: Nicotine Patch Removal NOTE FOLLOW UP SCH (21:14)
--- NOTE | 2017-04-18 08:39 | PN ---
Subjective Date of Service: 04/18/17 Interval History: Patient seen and examined at bedside. Pt is very upset about someone not starting an IV yesterday prior to being NPO and NSG staff wanting to start one now that she is "dehydrated". Pt is refusing an IV start this AM. She is willing to proceed to her stress test. Pt is requesting her suboxone. Denies fever, chills, shortness of breath, chest discomfort, throat discomfort, N/V/D. Tele: Sinus moses to sinus rhythm, rate 50-60's. Family History: Unchanged from Admission Social History: Unchanged from Admission Past Medical History: Findings - Hep C Objective Active Medications: Acetaminophen (Tylenol Tab*) 650 mg PO Q4H PRN Reason: PAIN Azithromycin (Zithromax Tab*) 500 mg PO Q24H [facility] Buprenorphine/Naloxone (Suboxone 8-2 Mg Sl Tab*) 3 tab.sl PO DAILY [facility] Cefuroxime Axetil (Ceftin Tab(*)) 500 mg PO BID [facility] Device (Nicotine Mouth Piece*) 1 each INH .USE WITH NICOTROL PRN Reason: CRAVING Ibuprofen (Motrin Tab*) 600 mg PO Q8H PRN Reason: PAIN Nicotine (Nicotine Inhaler*) 10 mg INH Q2H PRN Reason: CRAVING Nicotine (Nicotine Patch 21 Mg/24 Hr*) 1 patch TRANSDERM DAILY [facility] Ondansetron HCl (Zofran Inj*) 4 mg IV Q6H PRN Reason: NAUSEA Pharmacy Profile Note (Nicotine Patch Removal Note*) 1 note FOLLOW UP 2100 [facility] Vital Signs 04/17/17 04/17/17 04/17/17 17:24 19:05 19:54 Temperature 98.5 F 98.2 F Pulse Rate 76 76 Respiratory 16 18 16 Rate Blood Pressure 93/46 103/50 (mmHg) O2 Sat by Pulse 99 100 Oximetry 04/17/17 04/18/17 04/18/17 23:15 03:01 07:15 Temperature 98.7 F 98.4 F 98.5 F Pulse Rate 73 62 60 Respiratory 16 16 16 Rate Blood Pressure 97/50 92/49 81/42 (mmHg) O2 Sat by Pulse 97 98 Oximetry 04/18/17 04/18/17 07:49 08:00 Temperature Pulse Rate Respiratory 16 Rate Blood Pressure 82/50 (mmHg) O2 Sat by Pulse Oximetry Oxygen Devices in Use Now: None Appearance: NAD, laying in bed Respiratory: Symmetrical Chest Expansion and Respiratory Effort, Clear to Auscultation Cardiovascular: NL Sounds; No Murmurs; No JVD, RRR Abdominal: NL Sounds; No Tenderness; No Distention Extremities: No Edema Skin: No Rash or Ulcers Neurological: Alert and Oriented x 3, NL Muscle Strength and Tone Nutrition: Taking PO's Result Diagrams: 04/17/17 08:50 04/17/17 08:50 Microbiology and Other Data: Microbiology 04/16/17 20:02 Gram Stain - Final Sputum Expectorated 04/16/17 20:40 Legionella Urinary Antigen - Final Urine Negative Legionella Streptococcus pneumoniae Ag Screen - Final Negative Legionella 04/16/17 14:15 Influenza Types A,B Antigen (ZOE) - Final Nasal Specimen received for Influenza A/B Molecular testing Assess/Plan/Problems-Billing Assessment: Ms. Hernandez is a 37 yo female with PMH significant for IV drug use and tobacco abuse who presented to the emergency room with complaints of sore throat, neck pain and shortness of breath and was found to have a possible bilateral infiltrates on chest xray. - Patient Problems (1) Pneumonia Code(s): J18.9 - PNEUMONIA, UNSPECIFIED ORGANISM SNOMED Code(s): 719132122 Comment: - Afebrile and leukocytosis resolved - Legionella and strep pneumo urine antigens negative - BC negative, day 2 - Continue ceftriaxone and azithromycin (2) Elevated troponin Code(s): R74.8 - ABNORMAL LEVELS OF OTHER SERUM ENZYMES SNOMED Code(s): 691065641 Comment: - Suspect secondary to demand ischemia in the setting of PNA - Initial troponin 0.06, peaked at 0.39 - EKG yesterday - showed new TWI in V2 and V3, EKG this AM, TWI resolved - Echo - no significant findings - Stress echo pending (3) History of intravenous drug abuse Code(s): Z87.898 - PERSONAL HISTORY OF OTHER SPECIFIED CONDITIONS SNOMED Code( s): 48063857406436303 Comment: - Reports using amphetamines day prior to admission - Continue suboxone (4) DVT prophylaxis Code(s): [id number] - SNOMED Code(s): 467938098 Comment: - ambulation (5) Full code status Code(s): Z78.9 - OTHER SPECIFIED HEALTH STATUS SNOMED Code(s): 936033986 Status and Disposition: Inpatient. Discharge to home when medically stable, possibly later today.
[2017-04-18] MEDS: Nicotine PATCH 21 MG/24 HR* PATCH TRANSDERM SCH (08:43)
[2017-04-18] MEDS: ceFUROXime TAB(*) 250 MG PO SCH (08:43)
[2017-04-18] MEDS: Buprenorphine/Naloxone 8-2 MG SL TAB* 1 TAB PO SCH (08:43)
[2017-04-18] MEDS: Azithromycin TAB* 250 MG PO SCH (16:53)
[2017-04-18 17:21] VITALS: BP 109/53
--- NOTE | 2017-04-19 13:04 | DS ---
CC: Radha Aldana NP * DISCHARGE SUMMARY: DATE OF ADMISSION: 04/16/17. DATE OF DISCHARGE: 04/18/17. ATTENDING PHYSICIAN: Dr. Juan Francisco Solorzano * (dictated by Ann Domingo NP) . PRIMARY CARE PROVIDER: Radha Aldana NP. PRIMARY DIAGNOSES: 1. Bilateral pneumonia. 2. Hypertroponinemia, suspect secondary to demand ischemia in the setting of pneumonia. SECONDARY DIAGNOSIS: History of intravenous drug abuse, on Suboxone. STUDIES WHILE IN THE HOSPITAL: 1. Chest x-ray on 04/16/17: Radiologist's impression: Density overlying the bilateral lower lungs , could be seen in the setting of pneumonitis, infiltration, or possibly early ARDS depending on the patient's clinical presentation. This appearance could simply be the consequence of incomplete inspiration at the time of this image acquisition. Pulmonary edema is considered less likely with a normal appearing heart and mediastinum and no costophrenic angle blunting. 2. Transthoracic echocardiogram on 04/16/17. Medical Staff Manager's conclusion: Left ventricular chamber size is normal. Global left ventricular wall motion and contractility are within normal limits. Normal left ventricular diastolic filling is observed. The estimated ejection fraction is 50% to 55%. The right ventricular chamber size and systolic function are within normal limits. There is a trace of aortic regurgitation, there is mild tricuspid regurgitation. PA pressure estimated may be underestimated. No prior echo to compare. 3. Stress echo from 04/18/17. Medical Staff Manager's observation: Baseline EKG normal sinus rhythm, no ischemic changes. EKG with stress, sinus tachycardia, no ischemic changes. Baseline with a normal LV size and function, LVEF 55%. Adequate LV augmentation with exercise with no segmental wall motion abnormalities noted. Conclusion: Normal submaximal exercise stress echocardiogram. DISCHARGE MEDICATIONS: New home medications: 1. Azithromycin 250 mg oral daily for 3 days. 2. Ceftin 500 mg oral twice daily for 5 days. Continued home medications: Suboxone 3 tablets oral daily. HISTORY OF PRESENT ILLNESS/HOSPITAL COURSE: Ms. Hernandez is a 37-year-old female with past medical history significant for IV drug use and MRSA skin infection in the past, who presented to the emergency room with complaints of 24 hours of neck and throat tightness and shortness of breath. The patient is a current IV drug user. Last used amphetamine the day prior to admission around the time of her symptom onset. The patient also reported some nausea. She denied any fever or cough. The patient presented to the emergency room for further evaluation of her symptoms. While in the emergency room, the patient was found to have a slightly elevated white blood cell count of 12.7 and an intermediate troponin of 0.06, CRP was 16.67. She had a transthoracic echocardiogram while in the emergency room showing a normal ejection fraction and wall motion. She had a negative D- dimer. She had a chest x- ray showing bilateral infiltrates. The hospitalists were asked to evaluate the patient for admission. While in the hospital, the patient was initially declining IV sticks or blood draws. So her troponins were not trended. She was monitored on telemetry without significant findings. She did agree on the day after her admission to have a lab work drawn at which time her troponin was found to be 0.39. Her leukocytosis had resolved. Again, it was noted that the patient had echocardiogram in the emergency room without wall motion abnormalities and a normal EF. The patient had a repeat troponin on April 17 that was then 0.22. Patient's throat tightness resolved and it was felt that she should undergo a nuclear exercise stress test. On the morning of April 18, the patient had no IV access and declined IV access. So, it was decided to cancel the nuclear stress test and perform an exercise stress echo which was normal. The patient stated that she was feeling better. She did not have a primary care provider. So, one was set up for her. The patient was afebrile during her stay. PHYSICAL EXAMINATION: Vital Signs: As follows: Temperature 98.0, heart rate 82, respiratory rate 17, O2 sat 100% on room air, blood pressure 109/53. DISCHARGE PLAN: Ms. Hernandez is stable for discharge to home today. ACTIVITY: As tolerated. DIET: She should be on a regular diet. For her pneumonia, she has been continued on azithromycin 250 mg oral daily for 3 more days in addition to Ceftin 500 mg oral twice daily for 5 days after this evening's dose. The patient has been set up with a primary care provider Radha Aldana NP. She has an appointment set up for 05/01 at 10 a.m. The patient has been asked to return to the emergency room for any shortness of breath or chest discomfort. The patient has also been encouraged to stop smoking. Points of discussion at discharge: The patient should be considered for an outpatient cardiology follow-up appointment due to her elevated troponins. This is a summarized report of a complex medical history and hospital stay. For further details, please see the entire medical record. TIME SPENT: Time for this discharge was approximately 50 minutes greater than half of that was spent with the patient discussing discharge plans and instructions. CONDITION ON DISCHARGE: Stable. Reviewed by FABIENNE CONN 04/21/17 [id number]/[facility] #: [id number] PRANAV
--- NOTE | 2017-04-21 10:25 | ED ---
Florina Valdes Alfonso, scribed for Drake Burleson MD on 04/16/17 at 0429 . Shortness of Breath - HPI Summary HPI Summary: This patient is a 37 year old F BIBA to [facility] with a chief complaint of SOB since yesterday afternoon. The patient rates the pain 8/10 in severity. Symptoms aggravated by nothing. Symptoms alleviated by nothing. Patient reports diaphoresis, dyspnea, lightheadedness, throat is tight, shoulders are tense, anxiety, upper CP, loss of appetite, nausea, and arthralgia (one month). Patient denies fever, chills, cough, and calf swelling. She reports having lived in the [facility] for about 3 months now. She is on suboxone. - History of Current Complaint Chief Complaint: EDShortnessOfBreath Time Seen by Provider: 04/16/17 04:15 Hx Obtained From: Patient Onset/Duration: Gradual Onset, Lasting Days - yesterday afternoon, Still Present Timing: Constant Aggrevating Factors: Nothing Alleviating Factors: Nothing Associated Signs & Symptoms: Chest Pain Unrelated to Cough, Diaphoresis - Allergy/Home Medications Allergies/Adverse Reactions: Allergies Allergy/AdvReac Type Severity Reaction Status Date / Time Gabapentin Allergy Severe SKIN Verified 04/16/17 04:22 REACTION PMH/Surg Hx/FS Hx/Imm Hx Endocrine/Hematology History: Denies: Hx Diabetes, Hx Thyroid Disease Cardiovascular History: Denies: Hx Hypertension Respiratory History: Reports: Hx Asthma Denies: Hx Chronic Obstructive Pulmonary Disease (COPD) GI History: Denies: Hx Ulcer Opthamlomology History: Denies: Hx Legally Blind EENT History: Denies: Hx Deafness - Immunization History Date of Tetanus Vaccine: utd Date of Influenza Vaccine: unk Infectious Disease History: Yes Infectious Disease History: Reports: Hx Hepatitis - Hep C, Hx of Known/ Suspected MRSA, Hx Shingles Denies: Hx Human Immunodeficiency Virus (HIV), Hx Tuberculosis, Hx Known/ Suspected VRE, Hx Known/Suspected VRSA, History Other Infectious Disease, Traveled Outside the [place] in Last 30 Days - Family History Known Family History: Positive: Cardiac Disease, Hypertension, Diabetes - Social History Alcohol Use: None Hx Substance Use: Yes Substance Use Type: Reports: Marijuana, Other - IV drugs Substance Use Comment - Amount & Last Used: opiates, IV fentanyl from a patch Hx Tobacco Use: Yes Smoking Status (MU): Current Every Day Smoker Type: Cigarettes Amount Used/How Often: 1 PPD Have You Smoked in the Last Year: Yes Review of Systems Positive: Skin Diaphoresis. Negative: Fever, Chills Positive: Other - throat is tight" Positive: Chest Pain - upper Positive: Shortness Of Breath, Other - Dyspnea. Negative: Cough Positive: Nausea, Other - loss of appetite Positive: Arthralgia, Other - shoulders are tense" ; Negative calf swelling Neurological: Other - lightheadedness Positive: Anxious All Other Systems Reviewed And Are Negative: Yes Physical Exam - Summary Physical Exam Summary: General: Mildly ill-appearing, no pain distress Skin: warm, color reflects adequate perfusion, dry, Track sierra on forearms Head: normal Eyes: EOMI, JESSY ENT: normal Neck: supple, nontender Respiratory: CTA, breath sounds present Cardiovascular: Tachycardia Abdomen: soft, nontender Bowel: present Musculoskeletal: normal, strength/ROM intact, calves non-tender, no edema Neurological: normal, sensory/motor intact, A&O x3 Psychological: anxious Triage Information Reviewed: Yes Vital Signs On Initial Exam: Initial Vitals Temp Pulse Resp BP Pulse Ox 98.5 F 103 20 114/46 99 04/16/17 04:14 04/16/17 04:14 04/16/17 04:14 04/16/17 04:14 04/16/17 04:14 Vital Signs Reviewed: Yes - [place] Coma Scale Coma Scale Total: 15 Diagnostics - Vital Signs Vital Signs Temp Pulse Resp BP Pulse Ox 04/16/17 04:14 98.5 F 103 20 114/46 99 - Laboratory Lab Results: Lab Results 04/16/17 04/16/17 04/16/17 Range/Units 04:42 07:14 07:14 WBC (3.5-10.8) 10^3/ul RBC (4.0-5.4) 10^6/ul Hgb (12.0-16.0) g/dl Hct (35-47) % MCV (80-97) fL MCH (27-31) pg MCHC (31-36) g/dl RDW (10.5-15) % Plt Count (150-450) 10^3/ul MPV (7.4-10.4) um3 Neut % (Auto) (38-83) % Lymph % (Auto) (25-47) % Bonner % (Auto) (1-9) % Eos % (Auto) (0-6) % Baso % (Auto) (0-2) % Absolute Neuts (auto) (1.5-7.7) 10^3/ul Absolute Lymphs (auto) (1.0-4.8) 10^3/ul Absolute Monos (auto) (0-0.8) 10^3/ul Absolute Eos (auto) (0-0.6) 10^3/ul Absolute Basos (auto) (0-0.2) 10^3/ul Absolute Nucleated RBC 10^3/ul Nucleated RBC % INR (Anticoag Therapy) 0.99 (0.89-1.11) APTT 29.7 (26.0-36.3) seconds D-Dimer, Quantitative < 200 (Less Than 230) ng/mL Sodium 133 (133-145) mmol/L Potassium 4.3 (3.5-5.0) mmol/L Chloride 105 (101-111) mmol/L Carbon Dioxide 23 (22-32) mmol/L Anion Gap 5 (2-11) mmol/L BUN 21 (6-24) mg/dL Creatinine 0.66 (0.51-0.95) mg/dL Est GFR ( Amer) 128.9 (>60) Est GFR (Non-Af Amer) 100.2 (>60) BUN/Creatinine Ratio 31.8 H (8-20) Glucose 105 H (70-100) mg/dL Lactic Acid (0.5-2.0) mmol/L Calcium 9.0 (8.6-10.3) mg/dL Magnesium 1.9 (1.9-2.7) mg/dL Total Bilirubin 0.70 (0.2-1.0) mg/dL AST 27 (13-39) U/L ALT 21 (7-52) U/L Alkaline Phosphatase 67 (34-104) U/L Total Creatine Kinase 126 (10-223) U/L CK-MB (CK-2) 3.3 (0.6-6.3) ng/mL Troponin I 0.06 H* (<0.04) ng/mL C-Reactive Protein 16.67 H (< 5.00) mg/L B-Natriuretic Peptide ( - 100) pg/mL Total Protein 6.8 (6.4-8.9) g/dL Albumin 3.8 (3.2-5.2) g/dL Globulin 3.0 (2-4) g/dL Albumin/Globulin Ratio 1.3 (1-3) Lipase < 10 L (11.0-82.0) U/L TSH 0.93 (0.34-5.60) mcIU/mL Beta HCG, Quant < 0.60 mIU/mL Urine Color Yellow Urine Appearance Cloudy Urine pH 5.0 (5-9) Ur Specific [place] 1.031 H (1.010-1.030) Urine Protein 1+(30 mg/dl) H (Negative) Urine Ketones Trace H (Negative) Urine Blood Negative (Negative) Urine Nitrate Negative (Negative) Urine Bilirubin Negative (Negative) Urine Urobilinogen Negative (Negative) Ur Leukocyte Esterase Negative (Negative) Urine WBC (Auto) Trace(0-5/hpf) (Absent) Urine RBC (Auto) Trace(0-2/hpf) (Absent) Ur Squamous Epith Cells Present H (Absent) Urine Bacteria Absent (Absent) Hyaline Casts Present H (Absent) Urine Glucose Negative (Negative) Urine Ascorbic Acid * H (Negative) Salicylates < 2.50 (<30) mg/dL Acetaminophen < 15 mcg/mL Influenza A (Rapid) (Negative) Influenza B (Rapid) (Negative) 04/16/17 04/16/17 04/16/17 Range/Units 07:14 07:14 07:14 WBC 12.7 H (3.5-10.8) 10^3/ul RBC 4.35 (4.0-5.4) 10^6/ul Hgb 12.2 (12.0-16.0) g/dl Hct 36 (35-47) % MCV 83 (80-97) fL MCH 28 (27-31) pg MCHC 34 (31-36) g/dl RDW 14 (10.5-15) % Plt Count 183 (150-450) 10^3/ul MPV 9 (7.4-10.4) um3 Neut % (Auto) 74.5 (38-83) % Lymph % (Auto) 18.0 L (25-47) % Bonner % (Auto) 6.3 (1-9) % Eos % (Auto) 0.6 (0-6) % Baso % (Auto) 0.6 (0-2) % Absolute Neuts (auto) 9.4 H (1.5-7.7) 10^3/ul Absolute Lymphs (auto) 2.3 (1.0-4.8) 10^3/ul Absolute Monos (auto) 0.8 (0-0.8) 10^3/ul Absolute Eos (auto) 0.1 (0-0.6) 10^3/ul Absolute Basos (auto) 0.1 (0-0.2) 10^3/ul Absolute Nucleated RBC 0.01 10^3/ul Nucleated RBC % 0.1 INR (Anticoag Therapy) (0.89-1.11) APTT (26.0-36.3) seconds D-Dimer, Quantitative (Less Than 230) ng/mL Sodium (133-145) mmol/L Potassium (3.5-5.0) mmol/L Chloride (101-111) mmol/L Carbon Dioxide (22-32) mmol/L Anion Gap (2-11) mmol/L BUN (6-24) mg/dL Creatinine (0.51-0.95) mg/dL Est GFR ( Amer) (>60) Est GFR (Non-Af Amer) (>60) BUN/Creatinine Ratio (8-20) Glucose (70-100) mg/dL Lactic Acid 0.9 (0.5-2.0) mmol/L Calcium (8.6-10.3) mg/dL Magnesium (1.9-2.7) mg/dL Total Bilirubin (0.2-1.0) mg/dL AST (13-39) U/L ALT (7-52) U/L Alkaline Phosphatase (34-104) U/L Total Creatine Kinase (10-223) U/L CK-MB (CK-2) (0.6-6.3) ng/mL Troponin I (<0.04) ng/mL C-Reactive Protein (< 5.00) mg/L B-Natriuretic Peptide 174 H ( - 100) pg/mL Total Protein (6.4-8.9) g/dL Albumin (3.2-5.2) g/dL Globulin (2-4) g/dL Albumin/Globulin Ratio (1-3) Lipase (11.0-82.0) U/L TSH (0.34-5.60) mcIU/mL Beta HCG, Quant mIU/mL Urine Color Urine Appearance Urine pH (5-9) Ur Specific [place] (1.010-1.030) Urine Protein (Negative) Urine Ketones (Negative) Urine Blood (Negative) Urine Nitrate (Negative) Urine Bilirubin (Negative) Urine Urobilinogen (Negative) Ur Leukocyte Esterase (Negative) Urine WBC (Auto) (Absent) Urine RBC (Auto) (Absent) Ur Squamous Epith Cells (Absent) Urine Bacteria (Absent) Hyaline Casts (Absent) Urine Glucose (Negative) Urine Ascorbic Acid (Negative) Salicylates (<30) mg/dL Acetaminophen mcg/mL Influenza A (Rapid) (Negative) Influenza B (Rapid) (Negative) 04/16/17 04/17/17 04/17/17 Range/Units 14:52 08:50 08:50 WBC 5.1 (3.5-10.8) 10^3/ul RBC 3.85 L (4.0-5.4) 10^6/ul Hgb 11.0 L (12.0-16.0) g/dl Hct 33 L (35-47) % MCV 85 (80-97) fL MCH 29 (27-31) pg MCHC 34 (31-36) g/dl RDW 14 (10.5-15) % Plt Count 145 L (150-450) 10^3/ul MPV 9 (7.4-10.4) um3 Neut % (Auto) 42.5 (38-83) % Lymph % (Auto) 40.7 (25-47) % Bonner % (Auto) 10.7 H (1-9) % Eos % (Auto) 5.4 (0-6) % Baso % (Auto) 0.7 (0-2) % Absolute Neuts (auto) 2.2 (1.5-7.7) 10^3/ul Absolute Lymphs (auto) 2.1 (1.0-4.8) 10^3/ul Absolute Monos (auto) 0.5 (0-0.8) 10^3/ul Absolute Eos (auto) 0.3 (0-0.6) 10^3/ul Absolute Basos (auto) 0 (0-0.2) 10^3/ul Absolute Nucleated RBC 0 10^3/ul Nucleated RBC % 0 INR (Anticoag Therapy) (0.89-1.11) APTT (26.0-36.3) seconds D-Dimer, Quantitative (Less Than 230) ng/mL Sodium 135 (133-145) mmol/L Potassium 3.9 (3.5-5.0) mmol/L Chloride 106 (101-111) mmol/L Carbon Dioxide 24 (22-32) mmol/L Anion Gap 5 (2-11) mmol/L BUN 10 (6-24) mg/dL Creatinine 0.51 (0.51-0.95) mg/dL Est GFR ( Amer) 173.6 (>60) Est GFR (Non-Af Amer) 135.0 (>60) BUN/Creatinine Ratio 19.6 (8-20) Glucose 88 (70-100) mg/dL Lactic Acid (0.5-2.0) mmol/L Calcium 8.6 (8.6-10.3) mg/dL Magnesium 1.9 (1.9-2.7) mg/dL Total Bilirubin (0.2-1.0) mg/dL AST (13-39) U/L ALT (7-52) U/L Alkaline Phosphatase (34-104) U/L Total Creatine Kinase (10-223) U/L CK-MB (CK-2) (0.6-6.3) ng/mL Troponin I (<0.04) ng/mL C-Reactive Protein (< 5.00) mg/L B-Natriuretic Peptide ( - 100) pg/mL Total Protein (6.4-8.9) g/dL Albumin (3.2-5.2) g/dL Globulin (2-4) g/dL Albumin/Globulin Ratio (1-3) Lipase (11.0-82.0) U/L TSH (0.34-5.60) mcIU/mL Beta HCG, Quant mIU/mL Urine Color Urine Appearance Urine pH (5-9) Ur Specific [place] (1.010-1.030) Urine Protein (Negative) Urine Ketones (Negative) Urine Blood (Negative) Urine Nitrate (Negative) Urine Bilirubin (Negative) Urine Urobilinogen (Negative) Ur Leukocyte Esterase (Negative) Urine WBC (Auto) (Absent) Urine RBC (Auto) (Absent) Ur Squamous Epith Cells (Absent) Urine Bacteria (Absent) Hyaline Casts (Absent) Urine Glucose (Negative) Urine Ascorbic Acid (Negative) Salicylates (<30) mg/dL Acetaminophen mcg/mL Influenza A (Rapid) Negative (Negative) Influenza B (Rapid) Negative (Negative) 04/17/17 04/17/17 Range/Units 08:50 14:08 WBC (3.5-10.8) 10^3/ul RBC (4.0-5.4) 10^6/ul Hgb (12.0-16.0) g/dl Hct (35-47) % MCV (80-97) fL MCH (27-31) pg MCHC (31-36) g/dl RDW (10.5-15) % Plt Count (150-450) 10^3/ul MPV (7.4-10.4) um3 Neut % (Auto) (38-83) % Lymph % (Auto) (25-47) % Bonner % (Auto) (1-9) % Eos % (Auto) (0-6) % Baso % (Auto) (0-2) % Absolute Neuts (auto) (1.5-7.7) 10^3/ul Absolute Lymphs (auto) (1.0-4.8) 10^3/ul Absolute Monos (auto) (0-0.8) 10^3/ul Absolute Eos (auto) (0-0.6) 10^3/ul Absolute Basos (auto) (0-0.2) 10^3/ul Absolute Nucleated RBC 10^3/ul Nucleated RBC % INR (Anticoag Therapy) (0.89-1.11) APTT (26.0-36.3) seconds D-Dimer, Quantitative (Less Than 230) ng/mL Sodium (133-145) mmol/L Potassium (3.5-5.0) mmol/L Chloride (101-111) mmol/L Carbon Dioxide (22-32) mmol/L Anion Gap (2-11) mmol/L BUN (6-24) mg/dL Creatinine (0.51-0.95) mg/dL Est GFR ( Amer) (>60) Est GFR (Non-Af Amer) (>60) BUN/Creatinine Ratio (8-20) Glucose (70-100) mg/dL Lactic Acid (0.5-2.0) mmol/L Calcium (8.6-10.3) mg/dL Magnesium (1.9-2.7) mg/dL Total Bilirubin (0.2-1.0) mg/dL AST (13-39) U/L ALT (7-52) U/L Alkaline Phosphatase (34-104) U/L Total Creatine Kinase (10-223) U/L CK-MB (CK-2) (0.6-6.3) ng/mL Troponin I 0.39 H* 0.22 H* (<0.04) ng/mL C-Reactive Protein (< 5.00) mg/L B-Natriuretic Peptide ( - 100) pg/mL Total Protein (6.4-8.9) g/dL Albumin (3.2-5.2) g/dL Globulin (2-4) g/dL Albumin/Globulin Ratio (1-3) Lipase (11.0-82.0) U/L TSH (0.34-5.60) mcIU/mL Beta HCG, Quant mIU/mL Urine Color Urine Appearance Urine pH (5-9) Ur Specific [place] (1.010-1.030) Urine Protein (Negative) Urine Ketones (Negative) Urine Blood (Negative) Urine Nitrate (Negative) Urine Bilirubin (Negative) Urine Urobilinogen (Negative) Ur Leukocyte Esterase (Negative) Urine WBC (Auto) (Absent) Urine RBC (Auto) (Absent) Ur Squamous Epith Cells (Absent) Urine Bacteria (Absent) Hyaline Casts (Absent) Urine Glucose (Negative) Urine Ascorbic Acid (Negative) Salicylates (<30) mg/dL Acetaminophen mcg/mL Influenza A (Rapid) (Negative) Influenza B (Rapid) (Negative) Result Diagrams: 04/17/17 08:50 04/17/17 08:50 Lab Statement: Any lab studies that have been ordered have been reviewed, and results considered in the medical decision making process. - Radiology CXR Radiology Interpretation Completed By: ED Physician - Obscuration of right heart border. Bilateral infiltrates. - EKG 7833 Cardiac Rate: Tachycardia EKG Rhythm: Sinus Tachycardia - BPM 100 EKG Interpretation: Concave up ST segments in and V3. PVC. EKG Comparison: Other - No prior to compare Course/Dx - Diagnoses Provider Diagnoses: Dyspnea Discharge - Discharge Plan Condition: Stable Disposition: HOME The documentation as recorded by the Florina gutierrez Alfonso accurately reflects the service I personally performed and the decisions made by me, Drake Burleson MD.
== END 2017-04-18 18:02 | disposition home or self-care (01) | DRG 139 ==
LOC: ED 04:11 → MEDTELE 12:03 → OBSVTOIN 04-17 14:10
PROVIDERS: ADMIT Internal Medicine; ATTEND Internal Medicine
DX: J18.9 Pneumonia, unspecified organism (principal); I24.8 Other forms of acute ischemic heart disease; I08.2 Rheumatic disorders of both aortic and tricuspid valves; R74.8 Abnormal levels of other serum enzymes; Z86.14 Personal history of Methicillin resistant Staphylococcus aureus infection; F15.90 Other stimulant use, unspecified, uncomplicated; R11.0 Nausea; Z88.8 Allergy status to other drugs, medicaments and biological substances; Z91.048 Other nonmedicinal substance allergy status; Z72.89 Other problems related to lifestyle; J45.909 Unspecified asthma, uncomplicated; F17.210 Nicotine dependence, cigarettes, uncomplicated; B19.20 Unspecified viral hepatitis C without hepatic coma; F12.90 Cannabis use, unspecified, uncomplicated; Z82.49 Family history of ischemic heart disease and other diseases of the circulatory system; Z83.3 Family history of diabetes mellitus; F11.90 Opioid use, unspecified, uncomplicated; R40.2412 Glasgow coma scale score 13-15, at arrival to emergency department
CPT/HCPCS: 36415; 71010; 80048; 80053; 80329; 81003; 81015; 82550; 82553; 83605; 83690; 83735; 83880; 84443; 84484; 84702; 85025; 85379; 85610; 85730; 86140; 87040; 87070; 87205; 87502; 87899; 93005; 93306; 93350; 99406; A9270-GY; G0378; G0480; J0456; J0696; J3370

== ENCOUNTER 2019-02-25 07:31 | Emergency (ER) | payer OTHER ==
[2019-02-25] MEDS ORDERED: Dexamethasone IV* 4 MG/ML 1 ML (4 MG) IV SLOW PU ONE (07:38)
[2019-02-25] MEDS ORDERED: Famotidine IV* 10 MG/ML 2 ML (20 mg) IV SLOW PU ONE (07:38)
[2019-02-25] MEDS ORDERED: diPHENhydraMINE IV* 50 MG/ML 1 ml VIAL (BENADRYL) IV ONE (07:38)
[2019-02-25] MEDS ORDERED: NS 0.9% 1000 ML** 1,000 ML IV ONE (07:39)
[2019-02-25 11:08] VITALS: BP 118/73
--- NOTE | 2019-02-25 13:09 | ED ---
Back Pain - HPI Summary HPI Summary: This patient is a 39-year-old female presenting to the ED with a possible allergic reaction. Patient states she was shooting meth approximately 3 hours ago, but could not get the high she wanted, so began to smoke it. She states after that she developed tongue swelling. She endorses or tongue swelling onto the inferior portion of the tongue without airway obstruction. She denies any difficulty swallowing, pain with swallowing, difficulty with breathing, shortness of breath or airway compromise. She's never had this in the past. Denies any other allergies other than gabapentin. She states she smokes meth several times a week and has never had this reaction before. - History of Current Complaint Chief Complaint: EDAllergicReaction Stated Complaint: ALLERGIC REACTION Time Seen by Provider: 02/25/19 07:33 Hx Obtained From: Patient Hx Last Menstrual Period: 06-06-16 Onset/Duration: Sudden Onset Onset/Duration: Started Minutes Ago Timing: Constant, Lasting Seconds Back Pain Location: Is Discrete @ - inferior tongue Severity Initially: Mild Severity Currently: Mild Pain Intensity: 2 Pain Scale Used: 0-10 Numeric Associated Signs And Symptoms: Positive: Swelling - Allergies/Home Medications Allergies/Adverse Reactions: Allergies Allergy/AdvReac Type Severity Reaction Status Date / Time gabapentin Allergy See Comment Verified 09/06/18 21:25 Home Medications: Home Medications Dextroamphetamine/Amphetamine [Adderall 20 mg Tablet] 20 mg PO BID 02/25/19 [ History Confirmed 02/25/19] Metoprolol Tartrate 50 mg PO BID 02/25/19 [History Confirmed 02/25/19] cloNIDine HCl [Catapres 0.2 MG TAB] 0.2 mg PO TID 02/25/19 [History Confirmed ] PMH/Surg Hx/FS Hx/Imm Hx Previously Healthy: Yes Endocrine/Hematology History: Denies: Hx Diabetes, Hx Thyroid Disease Cardiovascular History: Denies: Hx Hypertension Respiratory History: Reports: Hx Asthma Denies: Hx Chronic Obstructive Pulmonary Disease (COPD) GI History: Denies: Hx Ulcer Sensory History: Denies: Hx Contacts or Glasses, Hx Legally Blind, Hx Deafness, Hx Hearing Aid Opthamlomology History: Denies: Hx Contacts or Glasses, Hx Legally Blind - Immunization History Date of Tetanus Vaccine: utd Date of Influenza Vaccine: unk Hx Pertussis Vaccination: No Immunizations Up to Date: No Infectious Disease History: Yes Infectious Disease History: Reports: Hx Hepatitis - Hep C, Hx of Known/ Suspected MRSA, Hx Shingles Denies: Hx Human Immunodeficiency Virus (HIV), Hx Tuberculosis, Hx Known/ Suspected VRE, Hx Known/Suspected VRSA, History Other Infectious Disease, Traveled Outside the [place] in Last 30 Days - Family History Known Family History: Positive: Cardiac Disease, Hypertension, Diabetes - Social History Occupation: Unemployed Lives: Alone Alcohol Use: Occasionally Hx Substance Use: Yes Substance Use Type: Reports: Prescribed, Other 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 Hx Tobacco Use: Yes Smoking Status (MU): Heavy Every Day Tobacco Smoker Type: Cigarettes Amount Used/How Often: 1 PPD Have You Smoked in the Last Year: Yes Review of Systems Negative: Fever, Chills, Fatigue, Skin Diaphoresis Positive: Other - tongue swelling Negative: Chest Pain Negative: Shortness Of Breath, Cough Genitourinary: Negative Positive: see HPI Skin: Negative Neurological: Negative All Other Systems Reviewed And Are Negative: Yes Physical Exam Triage Information Reviewed: Yes Vital Signs On Initial Exam: Initial Vitals Temp Pulse Resp BP Pulse Ox 97.8 F 88 18 152/89 99 02/25/19 07:35 02/25/19 07:35 02/25/19 07:35 02/25/19 07:35 02/25/19 07:35 Vital Signs Reviewed: Yes Appearance: Positive: Ill-Appearing, Cachectic Skin: Positive: Warm, Skin Color Reflects Adequate Perfusion Head/Face: Positive: Normal Head/Face Inspection Eyes: Positive: EOMI, Conjunctiva Clear ENT: Positive: Pharynx normal, TMs normal, Uvula midline. Negative: Pharyngeal erythema, Nasal congestion, Nasal drainage, Tonsillar swelling, Tonsillar exudate, Muffled voice, Hoarse voice, Dental tenderness, Sinus tenderness Neck: Positive: Supple, No Lymphadenopathy Respiratory/Lung Sounds: Positive: Clear to Auscultation, Breath Sounds Present Cardiovascular: Positive: RRR, Pulses are Symmetrical in both Upper and Lower Extremities Musculoskeletal: Positive: Normal, Strength/ROM Intact Neurological: Positive: Speech Normal Psychiatric: Positive: Affect/Mood Appropriate Diagnostics - Vital Signs Vital Signs Temp Pulse Resp BP Pulse Ox 02/25/19 11:06 97.9 F 89 18 118/73 99 02/25/19 10:00 77 98 02/25/19 09:06 84 15 132/74 98 02/25/19 09:00 73 11 98 02/25/19 08:36 78 11 135/76 98 02/25/19 08:08 91 7 137/90 98 02/25/19 08:07 91 98 02/25/19 07:42 86 18 97 02/25/19 07:36 19 152/89 02/25/19 07:35 97.8 F 88 18 152/89 99 - Laboratory Lab Statement: Any lab studies that have been ordered have been reviewed, and results considered in the medical decision making process. Back Pain Course/Dx - Course Course Of Treatment: Patient is evaluated for tongue swelling. On arrival into the ED, the patient appears disheveled. She is endorsing swelling and tingling to her inferior portion of the tongue. No pharyngeal erythema, tonsillar exudates, airway obstruction. Airway is patent. Lungs CTA, RRR. Pt is given benadryl and famotidine by mouth. Patient is feeling improved and will be discharged home. She is given a prescription for Benadryl. - Diagnoses Provider Diagnoses: Allergic reaction caused by a drug, Tongue swelling Discharge ED - Sign-Out/Discharge Documenting (check all that apply): Patient Departure Patient Received Moderate/Deep Sedation with Procedure: No - Discharge Plan Condition: Stable Disposition: HOME Prescriptions: diPHENhydraMINE PO* [Benadryl PO 25 MG TAB*] 25 mg PO Q6H PRN #12 tab PRN Reason: Allergy Symptoms Referrals: No Primary Care Phys,NOPCP [Primary Care Provider] - Additional Instructions: You were seen for allergic reaction Benadryl 25mg four times daily as needed - Billing Disposition and Condition Condition: STABLE Disposition: Home
== END 2019-02-25 11:06 | disposition home or self-care (01) ==
LOC: ED 07:31
DX: R22.0 Localized swelling, mass and lump, head (principal); T43.625A Adverse effect of amphetamines, initial encounter; F17.210 Nicotine dependence, cigarettes, uncomplicated; Y92.9 Unspecified place or not applicable; Z88.8 Allergy status to other drugs, medicaments and biological substances; Z79.899 Other long term (current) drug therapy
CPT/HCPCS: 96374; 96375; 99283; J1100; J1200

== ENCOUNTER 2023-01-07 23:08 | Observation (INO) ==
[2023-01-07] MEDS ORDERED: Adenosine 3 MG/ML 2 ml VIAL (6 mg) ONE (23:26)
[2023-01-08 00:41] LABS: ABS Eosinophils 0.1 10^3/uL (0.0-0.5); ABS Monocytes 0.7 10^3/uL (0.0-0.9); ABS Neutrophils 5.6 10^3/uL (1.5-7.6); ABS Nucleated RBC 0.02 10^3/ul; Eosinophil % 0.9 %; Hematocrit 40.9 % (35-45); Hemoglobin 14.7 g/dL (11.5-14.3); Lymphocyte % 23.9 %; Mean Corpuscular Hgb Conc 35.9 g/dL (31-36); Mean Corpuscular Volume 83.6 fL (80-97); Mean Platelet Volume 8.7 fL (7.5-11.2); Nucleated Red Blood Cells % 0.2 /100 WBC (0.0-0.4); Platelet Count 176 10^3/uL (150-450); White Blood Count 8.4 10^3/uL (3.8-11.8)
[2023-01-08 00:47] LABS: INR 1.15 (0.88-1.18)
[2023-01-08 00:57] LABS: Albumin 3.9 g/dL (3.2-5.2); Albumin/Globulin Ratio 1.2 (1-3); Calcium 8.9 mg/dL (8.6-10.3); Creatinine, Serum 1.01 mg/dL (0.51-0.95); Globulin 3.2 g/dL (2-4); Potassium 3.4 mmol/L (3.5-5.0); Total Bilirubin 0.6 mg/dL (0.2-1.0); Total Protein 7.1 g/dL (6.4-8.9); eGFR CKD-EPI 70.8 (>60)
[2023-01-08 02:08] LABS: High Sensitivity Troponin 1 Hr 422 pg/mL (<15)
[2023-01-08] MEDS ORDERED: Morphine 4 MG/ML VIAL (1 ml) IV ONE (02:22)
[2023-01-08] MEDS ORDERED: Midazolam 5 mg/5 ml VIAL 1 mg/ml 5 ml VIAL (5 mg) IV SLOW PU ONE (02:22)
[2023-01-08 03:13] LABS: Magnesium 1.6 mg/dL (1.9-2.7)
[2023-01-08] MEDS ORDERED: Potassium EFFERVES 25 meq TAB PO ONE (03:28)
[2023-01-08] MEDS ORDERED: Magnesium Sulf 4 GM/100 ML IV 4,000 MG/100 ML BAG IVPB ONE (03:28)
[2023-01-08] MEDS ORDERED: NS 0.9% 1000 ml BAG 1,000 ML IV SCH (05:45)
[2023-01-08] MEDS ORDERED: Lactated Ringers 1000 ml BAG 1,000 ML IV SCH (08:00)
[2023-01-08] MEDS: Enoxaparin 40 MG/0.4 ML SYR SUBCUT SCH (08:08)
[2023-01-08] MEDS ORDERED: Buprenorp/Nalox 12-3 MG FILM SL SCH (09:00)
[2023-01-08 09:07] LABS: Urine Benzodiazepine Screen Presumptive Positive (None Detect); Urine Cannabinoids Screen None Detected (None Detect); Urine Opiates Screen None Detected (None Detect)
[2023-01-08] MEDS: Buprenorp/Nalox 12-3 MG FILM SL SCH ×2 (11:19→22:49)
[2023-01-08 17:18] LABS: ABS Basophils 0.1 10^3/uL (0.0-0.1); ABS Eosinophils 0.1 10^3/uL (0.0-0.5); ABS Lymphocytes 2.6 10^3/uL (1.0-4.8); ABS Monocytes 0.7 10^3/uL (0.0-0.9); ABS Neutrophils 3.2 10^3/uL (1.5-7.6); ABS Nucleated RBC 0.01 10^3/ul; Eosinophil % 1.7 %; Hematocrit 38.9 % (35-45); Hemoglobin 13.4 g/dL (11.5-14.3); Mean Corpuscular Hemoglobin 29.4 pg (27-33); Mean Corpuscular Hgb Conc 34.6 g/dL (31-36); Mean Corpuscular Volume 85.2 fL (80-97); Mean Platelet Volume 8.2 fL (7.5-11.2); Nucleated Red Blood Cells % 0.1 /100 WBC (0.0-0.4); Platelet Count 181 10^3/uL (150-450); Red Blood Count 4.56 10^6/uL (3.63-4.92); Red Cell Distribution Width 13.2 % (12-17); White Blood Count 6.7 10^3/uL (3.8-11.8)
[2023-01-08 17:59] LABS: Calcium 8.5 mg/dL (8.6-10.3); Creatinine, Serum 0.69 mg/dL (0.51-0.95); Magnesium 2.2 mg/dL (1.9-2.7); Potassium 3.9 mmol/L (3.5-5.0); eGFR CKD-EPI 110.4 (>60)
[2023-01-08] MEDS ORDERED: NS 0.9% 250 ml 250 ML IV ONE (22:08)
[2023-01-08] MEDS ORDERED: NS 0.9% 500 ml BAG 500 ML IV ONE (22:46)
[2023-01-08] MEDS ORDERED: NS 0.9% 1000 ml BAG 1,000 ML IV ONE (23:46)
[2023-01-09] MEDS ORDERED: NS 0.9% 1000 ml BAG 1,000 ML IV ONE (01:43)
[2023-01-09] MEDS ORDERED: NS 0.9% 1000 ml BAG 1,000 ML IV SCH (01:45)
[2023-01-09] MEDS: Enoxaparin 40 MG/0.4 ML SYR SUBCUT SCH (07:37)
[2023-01-09 08:25] LABS: Calcium 7.2 mg/dL (8.6-10.3); Magnesium 1.8 mg/dL (1.9-2.7); Potassium 4.2 mmol/L (3.5-5.0)
[2023-01-09 08:30] LABS: Creatinine, Serum 0.59 mg/dL (0.51-0.95); eGFR CKD-EPI 114.6 (>60)
[2023-01-09] MEDS ORDERED: Amphetamine MIXED SALT 10mgTAB PO SCH (09:00)
[2023-01-09] MEDS ORDERED: Magnesium Sulf 4 GM/100 ML IV 4,000 MG/100 ML BAG IVPB ONE (09:07)
[2023-01-09] MEDS: Buprenorp/Nalox 12-3 MG FILM SL SCH ×2 (09:20→21:06)
[2023-01-09] MEDS: Amphetamine MIXED SALT 10mgTAB PO SCH (09:20)
[2023-01-09] MEDS: Nicotine PATCH 7 MG/24 HR PATCH TRANSDERM SCH (09:23)
[2023-01-10] MEDS: Enoxaparin 40 MG/0.4 ML SYR SUBCUT SCH (06:01)
[2023-01-10] MEDS: Buprenorp/Nalox 12-3 MG FILM SL SCH (08:45)
[2023-01-10] MEDS: Amphetamine MIXED SALT 10mgTAB PO SCH (08:46)
[2023-01-10] MEDS: Nicotine PATCH 7 MG/24 HR PATCH TRANSDERM SCH (08:54)
[2023-01-10 15:51] VITALS: BP 96/51
== END 2023-01-10 18:00 | disposition home or self-care (01) ==
LOC: ED 23:08 → EDHOLD 23:08 → SUATTDRO 01-08 03:37 → MEDTELE 01-08 14:59
PROVIDERS: ADMIT Internal Medicine; ATTEND Hospitalist